=== PATIENT | male | born 1940 | race Caucasian/White ===

== ENCOUNTER 2016-10-14 09:12 | Emergency (ER) | payer MEDICARE, BC ==
[~2016-10-14 09:12] MED LIST: COUMADIN PO; DIOVAN PO; FLOMAX0.4 MG PO; PACERONE PO; PROSCAR5 MG PO
== END 2016-10-14 11:40 | disposition home or self-care (01) ==
LOC: CED 09:12
DX: I10 Essential (primary) hypertension (principal); I48.91 Unspecified atrial fibrillation; Z86.73 Personal history of transient ischemic attack (TIA), and cerebral infarction without residual deficits
CPT/HCPCS: 99282